=== PATIENT | female | born 1965 ===

== ENCOUNTER 2017-01-05 09:00 | Day surgery (SDC) | payer OTHER ==
[2017-01-05 09:37] VITALS: BMI 21.1
[2017-01-05 09:54] VITALS: O2SAT 100
[2017-01-05] MEDS ORDERED: Lactated Ringer's 500 ML IV ONE (10:58)
--- NOTE | 2017-01-05 10:58 | CP.SDSHP ---
Same Day Surgery H & P - History Proposed Procedure: EGD. Colonoscopy Pre-Op Diagnosis: acid reflux. abdominal pain. screening for colon cancer - Allergies Allergies: Allergies Penicillins Allergy (Verified 01/05/17 09:35) ANAPHYLAXIS - Current Medications Current Medications: see med list - Physical Exam General Appearance: NAD Vital Signs: Vital Signs 01/05/17 09:40 Temperature 98.6 F Pulse Rate 73 Respiratory 19 Rate Blood Pressure 122/72 O2 Sat by Pulse 100 Oximetry Mental Status: Alert & Oriented x3 Heart: WNL Lungs: WNL GI: WNL - {Optional Preform as Required} Abdomen: WNL - Impression Impression: 51 year old female here for evaluation of abdominal pain/acid reflux and screening for colon cancer Pt. Evaluated Today:Candidate for Anesthesia & Procedure: Yes - Date & Time Date: 01/05/17 Time: 10:58 Short Stay Discharge - Short Stay Discharge Admitting Diagnosis/Reason for Visit: SCREENING / ACID REFLUX / ABDOMINAL PAIN Disposition: HOME/ ROUTINE
[2017-01-05] MEDS ORDERED: Propofol 10 mg/ml Inj (20 ML) ONE (11:02)
[2017-01-05] MEDS ORDERED: ePHEDrine 50 mg/ml Inj ONE (11:48)
[2017-01-05 14:02] VITALS: TEMP 97.4
[2017-01-05 14:08] VITALS: BP 114/66; PULSE 68; RESP 15
== END 2017-01-05 12:50 | disposition home or self-care (01) ==
LOC: C.ENDO 09:00
PROVIDERS: ATTEND Internal Medicine Gastroenterology
DX: Z12.11 Encounter for screening for malignant neoplasm of colon (principal); K64.8 Other hemorrhoids
CPT/HCPCS: 45378; 84703; 88104; 88305; 88307; 88342; J2001; J2704; J3010; J7120

== ENCOUNTER 2017-04-09 07:30 | Emergency (ER) | payer OTHER, SELFPAY ==
[2017-04-09 07:49] VITALS: O2SAT 98
[2017-04-09] MEDS ORDERED: DiphenhydrAMINE 50 mg/ml Inj IVP STA ×2 (07:55→08:30)
[2017-04-09] MEDS ORDERED: MethylPREDNISolone 40 mg Vial IVP STA (07:55)
[2017-04-09] MEDS ORDERED: Sodium Chloride 0.9% 1,000 ML IV ONE (07:55)
[2017-04-09] MEDS ORDERED: MethylPREDNISolone 40 mg Vial ONE (08:03)
[2017-04-09] MEDS ORDERED: Sodium Chloride 0.9% 1,000 ML ONE (08:03)
--- NOTE | 2017-04-09 08:09 | C.PDOC ---
History Of Present Illness 51 y/o female presents to ED with c/o allergic reaction. Patient notes she took Flagyl and tetracycline this morning at 0600 (appx 1.5 hr [employer]) and developed redness, rash, lightheadedness, and felt as if her body was swollen soon after. Patient notes she took 2 Benadryl prior to arrival. Reports known allergy to penicillin and notes she is "pretty sure" she has taken Flagyl in the past. Denies fever, chills, intra-oral swelling, cough, SOB, nausea, vomiting, or other associated symptoms. Time Seen by Provider: 04/09/17 07:49 Chief Complaint (Nursing): Allergic Reaction History Per: Patient History/Exam Limitations: no limitations Onset/Duration Of Symptoms: Hrs Current Symptoms Are (Timing): Still Present Possible Cause: Medication Associated Symptoms: Skin Rash. denies: Trouble Swallowing, Dizziness, Chest Pain Home/EMS Treatment: Benadryl Past Medical History Reviewed: Historical Data, Nursing Documentation, Vital Signs Vital Signs: Last Vital Signs Temp 97.7 F 04/09/17 09:16 Pulse 72 04/09/17 09:16 Resp 14 04/09/17 09:16 BP 109/75 04/09/17 09:16 Pulse Ox 98 04/09/17 09:16 Surgical History: Back Surgery Family History: States: Unknown Family Hx - Social History Hx Alcohol Use: No Hx Substance Use: No - Immunization History Hx Tetanus Toxoid Vaccination: No Hx Influenza Vaccination: No Hx Pneumococcal Vaccination: No Review Of Systems Except As Marked, All Systems Reviewed And Found Negative. Constitutional: Negative for: Fever, Chills ENT: Negative for: Mouth Swelling, Throat Swelling Cardiovascular: Negative for: Chest Pain, Palpitations Respiratory: Negative for: Cough, Shortness of Breath, Wheezing Gastrointestinal: Negative for: Vomiting Skin: Positive for: Rash Physical Exam - Physical Exam Appears: Non-toxic, No Acute Distress Skin: Warm, Dry, Rash (diffuse maculopapular rash) Head: Atraumatic, Normacephalic Eye(s): bilateral: PERRL, EOMI, Other (eyelid inflammation) Ear(s): Bilateral: Normal Oral Mucosa: Moist Tongue: No Swelling Lips: No Swelling Throat: Normal, No Erythema, No Exudate, No Drooling Neck: Supple Chest: Symmetrical Cardiovascular: Rhythm Regular Respiratory: Normal Breath Sounds, No Stridor, No Wheezing Gastrointestinal/Abdominal: Soft, No Tenderness Back: Normal Inspection Extremity: Normal ROM, Capillary Refill (< 2 sec.), No Swelling Neurological/Psych: Oriented x3, Normal Speech, Normal Cognition ED Course And Treatment O2 Sat by Pulse Oximetry: 98 (RA) Pulse Ox Interpretation: Normal Medical Decision Making Medical Decision Making: Plan: * Benadryl, prednisone, Pepcid, IVFs * Reassess Progress: On reassessment, patient is resting comfortably, tolerating PO, has no shortness of breath, has no intra-oral swelling, no stridor, and with improvement of rash. Patient was advised to take Benadryl as directed, and to follow up with clinic in 1-2 days. Disposition Counseled Patient/Family Regarding: Diagnosis, Need For Followup, Rx Given - Disposition Referrals: Gisela Delgado MD [Staff Provider] - Disposition: HOME/ ROUTINE Disposition Time: 09:10 Condition: STABLE Additional Instructions: Por favor, siga en la clnica y consulte a aguilar mdico sobre el cambio de medicamentos con antibiticos Mcintyre benadryl cada 6 horas segn sea necesario para picazn y erupcin cutnea Instructions: Antibiotic Medication Allergy (ED) Print Language: ARABIC - POA Present On Arrival: None - Clinical Impression Clinical Impression: Allergic reaction - PA / PHARMACY CONSULTANT / Resident Statement MD/DO has reviewed & agrees with the documentation as recorded. - Scribe Statement The provider has reviewed the documentation as recorded by the Scribakila Laboy All medical record entries made by the Scribe were at my direction and personally dictated by me. I have reviewed the chart and agree that the record accurately reflects my personal performance of the history, physical exam, medical decision making, and the department course for this patient. I have also personally directed, reviewed, and agree with the discharge instructions and disposition.
[2017-04-09] MEDS ORDERED: DiphenhydrAMINE 50 mg/ml Inj ONE (08:21)
[2017-04-09 09:17] VITALS: BP 109/75; PULSE 72; RESP 14; TEMP 97.7
== END 2017-04-09 09:46 | disposition home or self-care (01) ==
LOC: C.ER 07:30
DX: L27.0 Generalized skin eruption due to drugs and medicaments taken internally (principal); T37.3X5A Adverse effect of other antiprotozoal drugs, initial encounter; Y92.009 Unspecified place in unspecified non-institutional (private) residence as the place of occurrence of the external cause
CPT/HCPCS: 96361; 96374; 96375; 99284; J1200; J2920; J7040